=== PATIENT | female | born 1965 | race Hispanic/Latino ===

== ENCOUNTER 2018-07-09 09:54 | Day surgery (SDC) | payer MEDICARE ==
[~2018-07-09 09:54] MED LIST: ANCEF/STERILE WATER 2 GM/20 ML IV NR
[2018-07-09] MEDS ORDERED: ZOFRAN IV PRN (11:28)
[2018-07-09] MEDS ORDERED: TORADOL IV PRN (11:28)
[2018-07-09] MEDS ORDERED: DEMEROL IV PRN (11:28)
--- NOTE | 2018-07-09 11:29 | Anesthesia Day of Surgery ---
Anesthesia Day of Surgery - Day of Surgery Patient Examined: Yes Patient H&P Reviewed: Yes Patient is NPO: Yes
--- NOTE | 2018-07-09 11:30 | Anesthesia Consultation ---
Anesthesia Consult and Med Hx Date of service: 07/09/18 - Airway ROM Head & Neck: Adequate Mental/Hyoid Distance: Adequate Mallampati Class: Class I Intubation Access Assessment: Good - Pulmonary Exam CTA: Yes - Cardiac Exam Cardiac Exam: RRR - Pre-Operative Health Status ASA Pre-Surgery Classification: ASA3 Proposed Anesthetic Plan: General (GA with LMA) - Pulmonary Hx Smoking: Yes (1 PPD X 30 YRS) COPD: Yes (INHALERS PRN) Hx Sleep Apnea: No (AMINAH PRE SCREEN LOW RISK) - Cardiovascular System Hx Hypertension: No - Central Nervous System Hx Back Pain: Yes (NECK AND BACK PAIN) - Hematic Hx Anemia: Yes ( CHILD ONLY) - Other Systems Hx Substance Use: Yes (MARIJUANA OCC FOR NAUSEA) Hx Cancer: No
[2018-07-09 11:56] LABS: Basophils # (Auto) 0.1 K/mm3 (0.0-0.1); Eosinophils # (Auto) 0.3 K/mm3 (0.0-0.4); Hematocrit 42.4 % (30.3-42.9); Hemoglobin 14.8 gm/dl (10.1-14.3); Lymphocytes % (Auto) 31.7 % (13.4-35.0); Mean Corpuscular HGB Conc 35 % (30-34); Mean Corpuscular Hemoglobin 34 pg (28-32); Mean Corpuscular Volume 97 fl (79-97); Monocytes # (Auto) 0.4 K/mm3 (0.0-0.8); Monocytes % (Auto) 6.7 % (0.0-7.3); Platelet Count 162 K/mm3 (140-440); Red Blood Count 4.38 M/mm3 (3.65-5.03); Red Cell Distribution Width 13.2 % (13.2-15.2)
[2018-07-09] MEDS ORDERED: VERSED IV NR (12:00)
[2018-07-09] MEDS ORDERED: LACTATED RINGERS 1,000 ML IV SCH ×2 (12:00)
[2018-07-09 12:09] LABS: BUN/Creatinine Ratio 36; Blood Urea Nitrogen 18 mg/dL (7-17); Calcium 9.5 mg/dL (8.4-10.2); Hemolysis Index 59
[2018-07-09] MEDS ORDERED: XYLOCAINE MPF 2% ONE (12:33)
[2018-07-09] MEDS ORDERED: DILAUDID ONE ×2 (12:33→17:48)
[2018-07-09] MEDS ORDERED: DIPRIVAN 10 MG/ML IV ONE (12:33)
[2018-07-09] MEDS ORDERED: ZOFRAN ONE (13:03)
[2018-07-09] MEDS ORDERED: NACL 0.9% IR ONE (13:21)
[2018-07-09] MEDS ORDERED: TORADOL ONE (14:26)
[2018-07-09] MEDS: DILAUDID IV PRN ×4 (16:55→17:35)
--- NOTE | 2018-07-09 17:03 | Post Anesthesia Evaluation ---
- Post Anesthesia Evaluation Patient Participated: Yes Airway Patent: Yes Stable Respiratory Function: Yes Nausea/Vomiting: No Temp > 96.8F: Yes Pain Manageable: Yes Adequeate Hydration: Yes Anesthesia Complications: No
[2018-07-09] MEDS ORDERED: DILAUDID IV ONE (17:45)
[2018-07-09] MEDS ORDERED: PERCOCET 5/325 PO ONE (17:51)
[2018-07-09] MEDS ORDERED: MARCAINE 0.25% INFILTRATI ONE (18:28)
[2018-07-09] MEDS ORDERED: XYLOCAINE 1% 20 mL ONE (18:28)
[2018-07-09 19:24] VITALS: BP 110/56
--- NOTE | 2018-07-09 20:12 | Procedure Note ---
Date of procedure: 07/09/18 Pre-op diagnosis: displaced fractures right third and fourth proximal phalanx Hand Post-op diagnosis: same Procedure: Open reduction internal fixation right third and fourth proximal phalanges with plates and screws Procedure The patient was brought to the OR placed in the OR table in supine position following induction and intubation by anesthesia the patient's right upper extremity was prepped and draped in the usual sterile manner a timeout procedure was done to identify the patient and the correct operative site. The arm was then exsanguinated followed by inflation of the pneumatic tourniquet to 250 mmHg. A dorsal incision a bayonet-type incision was made over the proximal interphalangeal joint the incision then carried along the mid lateral line ending up towards the metacarpophalangeal joint incision is carried down through skin and subcutaneous the extensor tendon was seen the eighth tendon was then incised longitudinally. The fracture was then identified patient was noted to have loss of reduction and some rotation of the fracture fragments using an osteotome and periosteal elevators D early fracture callus was then lysed and the fracture fragment was placed in a more reduced position using bone -holding forceps followed by temporary fixation with K wires To interfragmentary screws were placed this is followed by application of a mini fragment locked plate the plate was then secured with screws of various lengths following this the fourth digit was approached and a similar manner again using a bayonet-type incision centered over the proximal interphalangeal joint and then carrying it along the mid lateral line the incision was then developed and taken deep or superficial to the extensor tendon again the tendon was incised longitudinally and retracted out of the operative field the again the fracture was identified with early callus formation and rotation of the fracture fragments the fracture fragments were then released using osteotome and periosteal elevators the fracture was then put in a more reduced position and again held with bone-holding forceps followed by K wire fixation and interfragmentary screw stabilization. Again a T-type mini locking plate was applied to the dorsal surface and secured to the bone with screws of various lengths in a locked fashion and AP and lateral film was obtained using a C-arm showing good reduction of the fracture fragments and placement of the hardware in addition the patient's rotation was checked on the operating table and she was found to have limitations with the fingers all pointing towards the base of the thumb following this the wound was copiously irrigated the extensor tendons were repaired using several nylon in an interrupted mattress fashion the skin was closed again with 3-0 nylon tape dressings were applied the patient was placed in a clamdigger-type splint with maximum flexion at the metacarpal phalangeal joints. Following this he was extubated and was taken to postanesthesia recovery in stable condition Anesthesia: TOM Surgeon: PRISCILLA RUTH Dray Driver: TERI RIVER Estimated blood loss: minimal Pathology: none Condition: stable Disposition: PACU (tourniquet time 143 minutes)
--- NOTE | 2018-07-10 09:19 | XRay Report ---
RIGHT HAND 2 VIEWS: 07/09/18 CLINICAL: ORIF third and fourth digits. FINDINGS: 2 fluoroscopic intraoperative images demonstrate malleable plates and screws of the proximal phalanges of the third and fourth digits. An oblique displaced fracture is identified at the lateral aspect of the proximal phalanx of the ring finger. No other fractures are apparent on these images. IMPRESSION: Status post ORIF fractures of the proximal phalanges of the third and fourth digits.
== END 2018-07-09 20:00 | disposition home or self-care (01) ==
LOC: OR 09:54
PROVIDERS: ATTEND Orthopaedic Surgery
DX: S62.612A Displaced fracture of proximal phalanx of right middle finger, initial encounter for closed fracture (principal); S62.614A Displaced fracture of proximal phalanx of right ring finger, initial encounter for closed fracture; J44.9 Chronic obstructive pulmonary disease, unspecified; F32.9 Major depressive disorder, single episode, unspecified; F41.9 Anxiety disorder, unspecified; F17.210 Nicotine dependence, cigarettes, uncomplicated; Z79.899 Other long term (current) drug therapy; Z90.710 Acquired absence of both cervix and uterus; Z86.2 Personal history of diseases of the blood and blood-forming organs and certain disorders involving the immune mechanism; X58.XXXA Exposure to other specified factors, initial encounter; Y93.89 Activity, other specified; Y92.89 Other specified places as the place of occurrence of the external cause; Y99.8 Other external cause status
CPT/HCPCS: 26735; 36415; 73120; 80048; 85025; C1713; J0690; J1170; J1885; J2250; J2405; J2704; J7120

== ENCOUNTER 2020-07-02 18:58 | Emergency (ER) | payer MEDICARE ==
[2020-07-02] MEDS ORDERED: ONDANSETRON 4 MG ODT TAB PO ONE (20:03)
[2020-07-02] MEDS ORDERED: oxyCODONE /ACETAMINOPHEN 5-325MG TAB PO ONE (20:03)
[2020-07-02 20:06] LABS: Basophils # (Auto) 0.1 K/mm3 (0.0-0.1); Basophils % (Auto) 0.8 % (0.0-1.8); Eosinophils # (Auto) 0.4 K/mm3 (0.0-0.4); Eosinophils % (Auto) 5.4 % (0.0-4.3); Hematocrit 42.9 % (30.3-42.9); Hemoglobin 14.5 gm/dl (10.1-14.3); Lymphocytes # (Auto) 2.5 K/mm3 (1.2-5.4); Lymphocytes % (Auto) 37.7 % (13.4-35.0); Mean Corpuscular HGB Conc 34 % (30-34); Mean Corpuscular Volume 98 fl (79-97); Monocytes # (Auto) 0.6 K/mm3 (0.0-0.8); Monocytes % (Auto) 8.7 % (0.0-7.3); Platelet Count 142 K/mm3 (140-440); Red Blood Count 4.36 M/mm3 (3.65-5.03); Red Cell Distribution Width 13.3 % (13.2-15.2)
--- NOTE | 2020-07-02 20:07 | Emergency Department Report ---
ED General Adult HPI - General Chief complaint: Extremity Injury, Upper Stated complaint: INFECTED THUMB Time Seen by Provider: 07/02/20 19:23 Source: patient Mode of arrival: Ambulatory Limitations: No Limitations - History of Present Illness Initial comments: 54-year-old female with history of fibromyalgia presents with complaints of left thumb pain and swelling x2 days. Patient states she believes that she was bitten by a spider or another type of insect, however did not actually see any insect bite her. She reports that suddenly a blister popped up on her thumb that was painful and she popped it with a sewing needle after 24 hours. Patient reports that after she popped the blister with a needle, the pain and swelling worsened and now there is pus draining from the area. She rates her pain as a 10/10 in severity and states she has difficulty bending her thumb due to the swelling and pain. She denies any fever/chills/sweats, loss of sensation into her finger or hand, or history of any immunocompromising diseases -: Sudden - Related Data Home Medications Medication Instructions Recorded Confirmed Last Taken ALBUTEROL Inhaler(NF) [VENTOLIN 1 puff IH PRN PRN 07/03/18 07/03/18 07/08/18 Inhaler(NF)] ALPRAZolam [Xanax] 1 mg PO PRN PRN 07/03/18 07/03/18 07/08/18 Ascorbic Acid [Vitamin C] 1,000 mg PO DAILY 07/03/18 07/03/18 07/08/18 Cyanocobalamin (Vitamin B-12) 2,500 mcg PO DAILY 07/03/18 07/03/18 07/08/18 [Vitamin B12] Cyclobenzaprine [Flexeril] 10 mg PO TID PRN 07/03/18 07/03/18 07/08/18 Multivit-Min/Iron/Folic/Lutein 1 each PO DAILY 07/03/18 07/03/18 07/08/18 [Centrum Silver Women Tablet] Oxycodone HCl/Acetaminophen 1 each PO PRN PRN 07/03/18 07/03/18 07/08/18 [Endocet 7.5-325 mg Tablet] Potassium Citrate [Potassium 10 meq PO DAILY 07/03/18 07/03/18 07/08/18 Citrate ER] Promethazine [Phenergan TAB] 25 mg PO Q6HR PRN 07/03/18 07/03/18 07/08/18 Tiotropium [Spiriva] 18 mcg IH PRN PRN 07/03/18 07/03/18 07/08/18 Previous Rx's Medication Instructions Recorded Last Taken Type HYDROcodone/APAP 7.5-325 [[place] 1 each PO Q6HR PRN #30 tablet 07/09/18 Unknown Rx 7.5-325 mg TAB] oxyCODONE [roxiCODONE] 5 mg PO Q6HR PRN #30 tablet 07/09/18 Unknown Rx Clindamycin [Clindamycin CAP] 300 mg PO Q6H 10 Days #40 cap 07/02/20 Unknown Rx Ibuprofen [Motrin 800 MG tab] 800 mg PO Q8HR PRN #21 tablet 07/02/20 Unknown Rx Mupirocin [Bactroban 2%] 1 applic TP TID 10 Days #1 tube 07/02/20 Unknown Rx Allergies Allergy/AdvReac Type Severity Reaction Status Date / Time No Known Allergies Allergy Verified 07/03/18 14:59 ED Review of Systems ROS: Stated complaint: INFECTED THUMB Other details as noted in HPI Constitutional: denies: chills, diaphoresis, fever, malaise, weakness Respiratory: denies: shortness of breath Cardiovascular: denies: chest pain Endocrine: denies: excessive sweating Gastrointestinal: denies: abdominal pain, nausea, vomiting Musculoskeletal: joint swelling Skin: as per HPI, change in color Neurological: denies: headache, weakness, paresthesias, confusion, abnormal gait Psychiatric: denies: auditory hallucinations, visual hallucinations Hematological/Lymphatic: denies: swollen glands ED Past Medical Hx - Past Medical History Previous Medical History?: Yes Hx Hypertension: No Hx of Cancer: Yes (Cervical) Hx Headaches / Migraines: Yes (MIGRAINES) Hx COPD: Yes (INHALERS PRN) Hx HIV: No - Surgical History Past Surgical History?: Yes Additional Surgical History: Hysterectomy - Social History Smoking Status: Current Every Day Smoker Substance Use Type: None - Medications Home Medications: Home Medications Medication Instructions Recorded Confirmed Last Taken Type ALBUTEROL Inhaler(NF) [VENTOLIN 1 puff IH PRN PRN 07/03/18 07/03/18 07/08/18 Hi story Inhaler(NF)] ALPRAZolam [Xanax] 1 mg PO PRN PRN 07/03/18 07/03/18 07/08/18 History Ascorbic Acid [Vitamin C] 1,000 mg PO DAILY 07/03/18 07/03/18 07/08/18 History Cyanocobalamin (Vitamin B-12) 2,500 mcg PO DAILY 07/03/18 07/03/18 07/08/18 History [Vitamin B12] Cyclobenzaprine [Flexeril] 10 mg PO TID PRN 07/03/18 07/03/18 07/08/18 History Multivit-Min/Iron/Folic/Lutein 1 each PO DAILY 07/03/18 07/03/18 07/08/18 History [Centrum Silver Women Tablet] Oxycodone HCl/Acetaminophen 1 each PO PRN PRN 07/03/18 07/03/18 07/08/18 History [Endocet 7.5-325 mg Tablet] Potassium Citrate [Potassium 10 meq PO DAILY 07/03/18 07/03/18 07/08/18 History Citrate ER] Promethazine [Phenergan TAB] 25 mg PO Q6HR PRN 07/03/18 07/03/18 07/08/18 History Tiotropium [Spiriva] 18 mcg IH PRN PRN 07/03/18 07/03/18 07/08/18 History HYDROcodone/APAP 7.5-325 [[place] 1 each PO Q6HR PRN #30 tablet 07/09/18 Unknown Rx 7.5-325 mg TAB] oxyCODONE [roxiCODONE] 5 mg PO Q6HR PRN #30 tablet 07/09/18 Unknown Rx Clindamycin [Clindamycin CAP] 300 mg PO Q6H 10 Days #40 cap 07/02/20 Unknown Rx Ibuprofen [Motrin 800 MG tab] 800 mg PO Q8HR PRN #21 tablet 07/02/20 Unknown Rx Mupirocin [Bactroban 2%] 1 applic TP TID 10 Days #1 tube 07/02/20 Unknown Rx ED Physical Exam - General Limitations: No Limitations General appearance: alert, in no apparent distress - Head Head exam: Present: atraumatic, normocephalic - Eye Eye exam: Present: normal appearance. Absent: scleral icterus - Neck Neck exam: Present: normal inspection, full ROM - Respiratory Respiratory exam: Present: normal lung sounds bilaterally. Absent: respiratory distress - Cardiovascular Cardiovascular Exam: Present: regular rate, normal rhythm - Extremities Exam Extremities exam: Present: other (Moderate swelling noted to left thumb with maceration of skin noted to the dorsal aspect of the thumb; there is a small opening with purulent drainage noted; swelling is mostly noted to the lateral portion of the thumb; no felon is noted; there is mild active bleeding; flexion of thumb is decreased secondary to swelling and pain; normal sensation and perfusion of the thumb is noted; no pain at the MCP joint with passive range of motion) - Expanded Upper Extremity Exam Left Neuro motor exam: Present: wrist extension intact, thumb opposition intact, thumb adduction intact - Back Exam Back exam: Present: full ROM - Neurological Exam Neurological exam: Present: alert, oriented X3, normal gait. Absent: motor sensory deficit - Psychiatric Psychiatric exam: Present: normal affect, normal mood - Skin Skin exam: Present: warm, dry. Absent: diaphoretic, petechiae, pallor, ecchymosis ED Course Vital Signs 07/02/20 19:02 Temperature 97.5 F L Pulse Rate 76 Respiratory 18 Rate Blood Pressure 137/108 O2 Sat by Pulse 97 Oximetry - I & D Finger Type of Procedure: Simple Site: Left thumb Blade Size: 11 I & D Procedure: betadine prep, sterile drapes applied, sterile dressing applied Progress: Patient in exercise using 8 cc of lidocaine 1% without epi. Mild to moderate purulent drainage obtained from the finger. Sample was sent for wound culture. Minimal bleeding occurred during procedure. Patient tolerated procedure well w ithout any immediate complications. She has normal perfusion post procedure. Increased flexion of thumb noted post procedure when compared to range of motion prior to procedure. ED Medical Decision Making - Lab Data Result diagrams: 07/02/20 19:51 07/02/20 19:51 Lab Results 07/02/20 07/02/20 Range/Units 19:51 19:51 WBC 6.8 (4.5-11.0) K/mm3 RBC 4.36 (3.65-5.03) M/mm3 Hgb 14.5 H (10.1-14.3) gm/dl Hct 42.9 (30.3-42.9) % MCV 98 H (79-97) fl MCH 33 H (28-32) pg MCHC 34 (30-34) % RDW 13.3 (13.2-15.2) % Plt Count 142 (140-440) K/mm3 Lymph % (Auto) 37.7 H (13.4-35.0) % Divide % (Auto) 8.7 H (0.0-7.3) % Eos % (Auto) 5.4 H (0.0-4.3) % Baso % (Auto) 0.8 (0.0-1.8) % Lymph # (Auto) 2.5 (1.2-5.4) K/mm3 Divide # (Auto) 0.6 (0.0-0.8) K/mm3 Eos # (Auto) 0.4 (0.0-0.4) K/mm3 Baso # (Auto) 0.1 (0.0-0.1) K/mm3 Seg Neutrophils % 47.4 (40.0-70.0) % Seg Neutrophils # 3.2 (1.8-7.7) K/mm3 Sodium 142 (137-145) mmol/L Potassium 3.8 (3.6-5.0) mmol/L Chloride 103.0 (98-107) mmol/L Carbon Dioxide 28 (22-30) mmol/L Anion Gap 15 mmol/L BUN 18 H (7-17) mg/dL Creatinine 0.5 L (0.6-1.2) mg/dL Estimated GFR > 60 ml/min BUN/Creatinine Ratio 36 % Glucose 95 (65-100) mg/dL Calcium 9.2 (8.4-10.2) mg/dL Total Bilirubin 0.20 (0.1-1.2) mg/dL AST 32 (5-40) units/L ALT 29 (7-56) units/L Alkaline Phosphatase 60 (35-129) units/L Total Protein 6.4 (6.3-8.2) g/dL Albumin 4.3 (3.9-5) g/dL Albumin/Globulin Ratio 2.0 % - Radiology Data Radiology results: report reviewed LEFT FINGER(S) 3 VIEW(S) INDICATION / CLINICAL INFORMATION: infection COMPARISON: None available. FINDINGS: BONES / JOINT(S): No acute fracture or subluxation. No significant arthritis. SOFT TISSUES: Minimal soft tissue swelling and skin irregularity noted of the thumb at the level of the interphalangeal joint. - Medical Decision Making 54-year-old female with history of fibromyalgia presents with complaints of left thumb pain and swelling x2 days. Patient states she believes that she was bitten by a spider or another type of insect, however did not actually see any insect bite her. She reports that suddenly a blister popped up on her thumb that was painful and she popped it with a sewing needle after 24 hours. Patient reports that after she popped the blister with a needle, the pain and swelling worsened and now there is pus draining from the area. She rates her pain as a 10/10 in severity and states she has difficulty bending her thumb due to the swelling and pain. She denies any fever/chills/sweats, loss of sensation into her finger or hand, or history of any immunocompromising diseases. Paronychia with skin maceration and active drainage noted on exam. Incision and drainage performed in sample was sent for wound culture. Patient tolerated procedure well. CBC is normal. No osteomyelitis or other acute bony abnormalities noted on x-ray. Bacitracin and sterile dressing placed over wound. Discussed importance of warm water soaks, wound care, and strict return precautions in detail with patient who verbalizes understanding. Patient to return to ED in 2 days for wound recheck. Prescription for clindamycin and mupirocin given. She is afebrile and non-tachycardic and stable for discharge home. Critical care attestation.: If time is entered above; I have spent that time in minutes in the direct care of this critically ill patient, excluding procedure time. ED Disposition Clinical Impression: Paronychia of thumb, left Disposition: DC-01 TO HOME OR SELFCARE Is pt being admited?: No Condition: Stable Instructions: Paronychia (ED), Abscess Incision and Drainage (ED) Additional Instructions: Return to the emergency department in 2 days for wound recheck on 07/04/2020 Prescriptions: Mupirocin [Bactroban 2%] 1 applic TP TID 10 Days #1 tube Clindamycin [Clindamycin CAP] 300 mg PO Q6H 10 Days #40 cap Ibuprofen [Motrin 800 MG tab] 800 mg PO Q8HR PRN #21 tablet PRN Reason: pain
[2020-07-02 20:26] LABS: Alanine Aminotransferase 29 units/L (7-56); Albumin 4.3 g/dL (3.9-5); Blood Urea Nitrogen 18 mg/dL (7-17); Calcium 9.2 mg/dL (8.4-10.2); Hemolysis Index 2
[2020-07-02] MEDS ORDERED: LIDOCAINE (1%) 10 MG/1 ML VIAL 20 ML MDV INFILTRATI ONE (20:29)
[2020-07-02 20:31] LABS: BUN/Creatinine Ratio 36
--- NOTE | 2020-07-02 21:25 | XRay Report ---
LEFT FINGER(S) 3 VIEW(S) INDICATION / CLINICAL INFORMATION: infection COMPARISON: None available. FINDINGS: BONES / JOINT(S): No acute fracture or subluxation. No significant arthritis. SOFT TISSUES: Minimal soft tissue swelling and skin irregularity noted of the thumb at the level of t he interphalangeal joint. ADDITIONAL FINDINGS: None. Signer Name: Den Crouch MD Signed: 07/02/2020 9:20 PM Workstation Name: [id number]
[2020-07-02] MEDS ORDERED: CLINDAMYCIN 150 MG CAP PO ONE (22:09)
[2020-07-02 23:02] VITALS: BP 147/96
== END 2020-07-02 23:04 | disposition home or self-care (01) ==
LOC: ED 18:58
DX: L03.012 Cellulitis of left finger (principal); G43.909 Migraine, unspecified, not intractable, without status migrainosus; J44.9 Chronic obstructive pulmonary disease, unspecified; F17.200 Nicotine dependence, unspecified, uncomplicated; Z90.710 Acquired absence of both cervix and uterus; Z79.1 Long term (current) use of non-steroidal anti-inflammatories (NSAID); Z79.899 Other long term (current) drug therapy; Z85.41 Personal history of malignant neoplasm of cervix uteri
CPT/HCPCS: 36415; 80053; 85025; 87076; 87116; 87186; Q0162

== ENCOUNTER 2020-08-10 13:31 | Outpatient (CLI) | payer MEDICARE ==
--- NOTE | 2020-08-10 15:20 | XRay Report ---
RIGHT HAND 2 VIEWS 1417 INDICATION: M79.641 S62.612A PAIN RT HAND DISPLACED FRACTURE FINGER, history of recent injury COMPARISON: Intraoperative views 07/09/2018 FINDINGS: Previous surgical changes are seen in the proximal phalanges of the middle and ring fingers . I see no acute fractures or dislocations. No other bony lesions are seen. No foreign bodies are see n in the soft tissues. Slight osteoarthritic type changes are seen in the distal interphalangeal join t of the little finger. Signer Name: James Bradley MD Signed: 08/10/2020 3:15 PM Workstation Name: [id number]
--- NOTE | 2020-08-10 15:51 | XRay Report ---
HISTORY:M25.561 PAIN RT KNEE STANDING VIEWS COMPARISON: None. TECHNIQUE: AP and lateral views were obtained FINDINGS: Bones: No fracture or dislocation. Joint spaces: Maintained. Soft tissues: No significant abnormality. Additional findings: None. IMPRESSION: 1. No significant abnormality. Signer Name: Doc Ren MD Signed: 08/10/2020 3:46 PM Workstation Name: [id number]
== END 2020-08-10 13:32 | disposition home or self-care (01) ==
LOC: XRAY 13:31
PROVIDERS: ATTEND Orthopaedic Surgery
DX: S62.614A Displaced fracture of proximal phalanx of right ring finger, initial encounter for closed fracture (principal); S62.612A Displaced fracture of proximal phalanx of right middle finger, initial encounter for closed fracture; M25.561 Pain in right knee; X58.XXXA Exposure to other specified factors, initial encounter; Y93.89 Activity, other specified; Y92.89 Other specified places as the place of occurrence of the external cause; Y99.8 Other external cause status

== ENCOUNTER 2020-08-24 09:52 | Day surgery (SDC) | payer MEDICARE ==
[2020-08-24] MEDS ORDERED: ONDANSETRON 4 MG/2 ML INJ IV PRN (11:05)
[2020-08-24] MEDS ORDERED: HYDROmorphone 1 MG/1 ML INJ IV PRN ×2 (11:05)
[2020-08-24] MEDS ORDERED: fentaNYL 100 MCG/2 ML INJ IV ONE (11:05)
--- NOTE | 2020-08-24 11:06 | Anesthesia Day of Surgery ---
Anesthesia Day of Surgery - Day of Surgery Patient Examined: Yes Patient H&P Reviewed: Yes Patient is NPO: Yes
--- NOTE | 2020-08-24 11:08 | Anesthesia Consultation ---
Anesthesia Consult and Med Hx Date of service: 08/24/20 - Airway Anesthetic Teeth Evaluation: Edentulous ROM Head & Neck: Adequate Mental/Hyoid Distance: Adequate Mallampati Class: Class II Intubation Access Assessment: Good - Pre-Operative Health Status ASA Pre-Surgery Classification: ASA3 Proposed Anesthetic Plan: General Nerve Block: SC - Pulmonary Hx Smoking: Yes (10 CIG. PER DAY) Hx Asthma: No (+2FS) COPD: Yes (INHALERS PRN- USED LAST WEEK) Hx Pneumonia: No Hx Sleep Apnea: No (AMINAH PRE SCREEN LOW RISK) - Cardiovascular System Hx Hypertension: No Hx Heart Attack/AMI: No Hx Pacemaker: No Hx Internal Defibrillator: No - Central Nervous System Hx Seizures: No Hx Back Pain: Yes (NECK AND BACK PAIN) Hx Psychiatric Problems: Yes (Anxiety/Depression/Bipolar/Fibromyalgia) - Endocrine Hx End Stage Renal Disease: No Hx Cirrhosis: No Hx Liver Disease: No - Hematic Hx Anemia: Yes ( CHILD ONLY) Hx Sickle Cell Disease: No - Other Systems Hx Alcohol Use: No Hx Substance Use: Yes (MARIJUANA OCC FOR NAUSEA) Hx Cancer: Yes
[2020-08-24] MEDS ORDERED: BUPIVACAINE/PF (0.25%) 2.5 MG/ML 30 ML VIAL INFILTRATI ONE (11:10)
[2020-08-24] MEDS ORDERED: ceFAZolin/STERILE WATER 2 GM/20 ML SYRINGE IV NR (11:21)
[2020-08-24] MEDS ORDERED: LACTATED RINGERS 1,000 ML IV SCH (12:00)
[2020-08-24] MEDS ORDERED: MIDAZOLAM 2 MG/2 ML INJ IV NR (12:00)
[2020-08-24] MEDS ORDERED: MIDAZOLAM 5 MG/5 ML INJ MDV IV ONE (12:01)
[2020-08-24] MEDS ORDERED: PHENYLEPHRINE/NS 1,000 MCG/10 ML SYRINGE (OR USE) IV ONE (13:00)
[2020-08-24] MEDS ORDERED: LIDOCAINE MPF (2%) 20 MG/1 ML VIAL 5 ML ONE (13:00)
[2020-08-24] MEDS ORDERED: dexAMETHasone 20 MG/5 ML VIAL ONE (13:00)
[2020-08-24] MEDS ORDERED: ONDANSETRON 4 MG/2 ML INJ ONE (13:00)
[2020-08-24] MEDS ORDERED: GLYCOPYRROLATE 0.4 MG/2 ML INJ ONE (13:00)
[2020-08-24] MEDS ORDERED: KETAMINE/STERILE WATER 50 MG/ML SYRINGE ONE (13:01)
[2020-08-24] MEDS ORDERED: propofoL 200 MG/20 ML VIAL IV ONE (13:01)
[2020-08-24] MEDS ORDERED: fentaNYL 100 MCG/2 ML INJ ONE (13:01)
[2020-08-24] MEDS ORDERED: SODIUM CHLORIDE 0.9% IRR 1,500 ML BOTTLE IR ONE (14:04)
--- NOTE | 2020-08-24 15:56 | Procedure Note ---
Date of procedure: 08/24/20 Pre-op diagnosis: Hardware irritation right third and fourth finger Post-op diagnosis: same Procedure: Removal of hardware right third and fourth fingers Procedure The patient was brought to the OR after being given an axillary nerve block for postop pain management she was placed on the table supine following induction with MAC anesthesia the patient's right upper extremity was prepped and draped in the usual sterile manner. A timeout procedure was done to identify the patient and the correct operative site. The arm was exsanguinated followed by inflation of the pneumatic tourniquet to 250 mmHg. Utilizing previous bayonet type incisions and using a #15 blade incision was taken down sharply through skin subcu the extensor tendon was seen and identified using a longitudinal incision over the extensor tendon this is taken down sharply to the plate using very tractors the soft tissues were stripped from the screw heads next the screws were removed without complications this was repeated for both the third and fourth fingers following this the wounds were then copiously irrigated the extensor tendons were repaired using 6-0 nylon in an interrupted suture pattern following this the skin was closed with 4-0 nylon in a interrupted pattern r outine postop dressings were applied the patient tolerated procedure there were no complications she was sent to postop anesthesia in a stable condition Anesthesia: MAC, regional Surgeon: PRISCILLA RUTH Bond Writer: TERI RIVER Estimated blood loss: minimal Pathology: none Condition: stable Disposition: PACU
--- NOTE | 2020-08-24 15:57 | Post Anesthesia Evaluation ---
- Post Anesthesia Evaluation Patient Participated: Yes Airway Patent: Yes Stable Respiratory Function: Yes Nausea/Vomiting: No Temp > 96.8F: Yes Pain Manageable: Yes Adequeate Hydration: Yes Anesthesia Complications: No Block Receding Appropriately: Yes Patient on Ventilator: No
--- NOTE | 2020-08-24 16:42 | XRay Report ---
Single fluoroscopic image submitted Indication: Intraoperative localization Impression: A single image of the right hand was submitted for documentation purposes with radiology involvement. Interval removal of malleable fixation plates over the right long and ring finger prox imal phalanges. There is a single retained metallic screw near the neck of the long finger. Please r efer to the operative note for complete details. Fluoroscopic time: 5 seconds Number of fluoroscopic images: 1 Signer Name: Alexandr Byrne MD Signed: 08/24/2020 4:38 PM Workstation Name: [id number]
[2020-08-24 17:04] VITALS: BP 124/69
== END 2020-08-24 17:20 | disposition home or self-care (01) ==
LOC: OR 09:52
PROVIDERS: ATTEND Orthopaedic Surgery
DX: T84.89XA Other specified complication of internal orthopedic prosthetic devices, implants and grafts, initial encounter (principal); Z20.828 Contact with and (suspected) exposure to other viral communicable diseases; G43.909 Migraine, unspecified, not intractable, without status migrainosus; J44.9 Chronic obstructive pulmonary disease, unspecified; M79.10 Myalgia, unspecified site; M19.90 Unspecified osteoarthritis, unspecified site; F17.210 Nicotine dependence, cigarettes, uncomplicated; F31.9 Bipolar disorder, unspecified; F41.9 Anxiety disorder, unspecified; Z79.899 Other long term (current) drug therapy; Z85.41 Personal history of malignant neoplasm of cervix uteri; Z98.51 Tubal ligation status; Z98.890 Other specified postprocedural states; Z90.710 Acquired absence of both cervix and uterus; Z86.2 Personal history of diseases of the blood and blood-forming organs and certain disorders involving the immune mechanism; Y84.8 Other medical procedures as the cause of abnormal reaction of the patient, or of later complication, without mention of misadventure at the time of the procedure; Y92.89 Other specified places as the place of occurrence of the external cause
CPT/HCPCS: 20680; 64417; 73120; 88302; J0690; J1100; J2250; J2370; J2405; J2704; J3010; J3490; J7120; U0003; 64450; 88300

== ENCOUNTER 2022-01-07 18:42 | Emergency (ER) | payer MEDICARE ==
--- NOTE | 2022-01-07 19:00 | Emergency Department Report ---
HPI - General Chief Complaint: Overdose Time Seen by Provider: 01/07/22 18:49 - HPI HPI: Room 20 The patient is a 56-year-old female present with a chief complaint of opiate overdose. The patient was found by another resident in the home unresponsive. EMS was called and found the patient lying in bed unresponsive and cyanotic and hypoxic with a SPO2 of 62% on room air. Patient was administered Narcan 2 mg intranasally with improvement in mental status. Patient now awake and alert stating she feels "embarrassed." Patient denies suicidal ideation. Patient states she took 1 Roxicet 30 mg but cut it in half. Patient denies any other ingestions ED Past Medical Hx - Past Medical History Hx Arthritis: Yes Hx Headaches / Migraines: Yes (MIGRAINES) Hx Psychiatric Treatment: Yes (Anxiety) Hx COPD: Yes (INHALERS PRN- USED LAST WEEK) Additional medical history: CAD - Surgical History Additional Surgical History: Hysterectomy - Family History Family history: no significant - Social History Smoking Status: Current Every Day Smoker Substance Use Type: Other (Opiates) - Medications Home Medications: Home Medications Medication Instructions Recorded Confirmed Last Taken Type ALBUTEROL Inhaler(NF) [VENTOLIN 1 puff IH PRN PRN 07/03/18 08/24/20 08/24/20 09:00 History Inhaler(NF)] ALPRAZolam [Xanax] 1 mg PO PRN PRN 07/03/18 08/21/20 08/23/20 History Ascorbic Acid [Vitamin C] 1,000 mg PO DAILY 07/03/18 08/21/20 08/23/20 History Cyanocobalamin (Vitamin B-12) 2,500 mcg PO DAILY 07/03/18 08/21/20 08/23/20 History [Vitamin B12] Multivit-Min/Iron/Folic/Lutein 1 each PO DAILY 07/03/18 08/21/20 08/23/20 History [Centrum Silver Women Tablet] Potassium Citrate [Potassium 10 meq PO DAILY 07/03/18 08/21/20 08/23/20 History Citrate ER] Promethazine [Phenergan TAB] 25 mg PO Q6HR PRN 07/03/18 08/21/20 08/23/20 History Adult Probiotic 1 cap PO DAILY 08/18/20 08/18/20 08/23/20 History Burkett 3,6,9 Combination No.7 1 cap PO DAILY 08/18/20 08/18/20 08/23/20 History oxyCODONE /ACETAMINOPHEN [Percocet 1 tab PO Q6HR PRN #30 tablet 08/24/20 Unknown Rx 5/325] Naloxone HCl [Narcan Nasal Fishers] 4 mg NS ONCE PRN #1 spray 01/07/22 Unknown Rx ED Review of Systems ROS: Stated complaint: OPIOD OD Other details as noted in HPI Constitutional: no symptoms reported Eyes: denies: eye pain ENT: denies: throat pain Respiratory: no symptoms reported Cardiovascular: denies: chest pain Endocrine: no symptoms reported Gastrointestinal: denies: abdominal pain Genitourinary: denies: dysuria Musculoskeletal: denies: back pain Psychiatric: denies: suicidal thoughts Physical Exam - Physical Exam Vital Signs: Vital Signs 01/07/22 18:43 Temperature 98.2 F Pulse Rate 70 Blood Pressure 138/78 [Left] O2 Sat by Pulse 97 Oximetry Physical Exam: GENERAL: The patient is well-developed thin female lying on stretcher not appearing to be in acute distress. [] HEENT: Normocephalic. Atraumatic. Extraocular motions are intact. Patient has moist mucous membranes. NECK: Supple. Trachea midline CHEST/LUNGS: Clear to auscultation. There is no respiratory distress noted. HEART/CARDIOVASCULAR: Regular. There is no tachycardia. There is no gallop rub or murmur. ABDOMEN: Abdomen is soft, nontender. Patient has normal bowel sounds. There is no abdominal distention. SKIN: There is no rash. There is no edema. There is no diaphoresis. NEURO: The patient is awake, alert, and oriented. The patient is cooperative. The patient has no focal neurologic deficits. The patient has normal speech. GCS 15 MUSCULOSKELETAL: There is no evidence of acute injury. ED Course Vital Signs 01/07/22 18:43 Temperature 98.2 F Pulse Rate 70 Blood Pressure 138/78 [Left] O2 Sat by Pulse 97 Oximetry ED Medical Decision Making - Lab Data Result diagrams: 01/07/22 19:00 01/07/22 19:00 Laboratory Tests 01/07/22 01/07/22 01/07/22 19:00 19:00 19:00 WBC 9.8 RBC 4.72 Hgb 15.5 H Hct 46.5 H MCV 98 H MCH 33 H MCHC 33 RDW 13.1 L Plt Count 144 Lymph % (Auto) 12.1 L Bullitt % (Auto) 5.6 Eos % (Auto) 0.7 Baso % (Auto) 0.3 Lymph # (Auto) 1.2 Bullitt # (Auto) 0.6 Eos # (Auto) 0.1 Baso # (Auto) 0.0 Seg Neutrophils % 81.3 H Seg Neutrophils # 8.0 H PT 12.9 INR 0.88 APTT 26.3 Sodium 140 Potassium 3.5 L Chloride 99.4 Carbon Dioxide 26 Anion Gap 18 BUN 26 H Creatinine 0.5 L Estimated GFR > 60 BUN/Creatinine Ratio 52 Glucose 155 H Calcium 8.9 Total Bilirubin 0.60 AST 60 H ALT 43 Alkaline Phosphatase 60 Total Creatine Kinase 1575 H CK-MB (CK-2) 33.8 H CK-MB (CK-2) Rel Index 2.1 Troponin T 0.012 Total Protein 7.4 Albumin 4.6 Albumin/Globulin Ratio 1.6 Salicylates Acetaminophen Plasma/Serum Alcohol 01/07/22 01/07/22 01/07/22 19:00 19:00 19:00 WBC RBC Hgb Hct MCV MCH MCHC RDW Plt Count Lymph % (Auto) Bullitt % (Auto) Eos % (Auto) Baso % (Auto) Lymph # (Auto) Bullitt # (Auto) Eos # (Auto) Baso # (Auto) Seg Neutrophils % Seg Neutrophils # PT INR APTT Sodium Potassium Chloride Carbon Dioxide Anion Gap BUN Creatinine Estimated GFR BUN/Creatinine Ratio Glucose Calcium Total Bilirubin AST ALT Alkaline Phosphatase Total Creatine Kinase CK-MB (CK-2) CK-MB (CK-2) Rel Index Troponin T Total Protein Albumin Albumin/Globulin Ratio Salicylates < 0.3 L Acetaminophen 5.0 L Plasma/Serum Alcohol < 0.01 - EKG Data -: EKG Interpreted by Me EKG shows normal: sinus rhythm Rate: normal - EKG Data When compared to previous EKG there are: previous EKG unavailable Interpretation: nonspecific ST-T wave federico - Differential Diagnosis Opiate overdose Critical care attestation.: If time is entered above; I have spent that time in minutes in the direct care of this critically ill patient, excluding procedure time. ED Disposition Clinical Impression: Opiate overdose Disposition: 01 HOME / SELF CARE / HOMELESS Is pt being admited?: No Does the pt Need Aspirin: No Condition: Stable Instructions: Opioid Overdose Additional Instructions: Return to the emergency department should you develop worsening symptoms, inability to tolerate food or liquids, high fever or any other concerns Prescriptions: Naloxone HCl [Narcan Nasal Fishers] 4 mg NS ONCE PRN #1 spray PRN Reason: Opioid Reversal Referrals: PRIMARY CARE, [Primary Care Provider] - 3-5 Days Time of Disposition: 22:22
[2022-01-07 19:53] LABS: Basophils % (Auto) 0.3 % (0.0-1.8); Eosinophils # (Auto) 0.1 K/mm3 (0.0-0.4); Eosinophils % (Auto) 0.7 % (0.0-4.3); Hematocrit 46.5 % (30.3-42.9); Hemoglobin 15.5 gm/dl (10.1-14.3); Lymphocytes # (Auto) 1.2 K/mm3 (1.2-5.4); Lymphocytes % (Auto) 12.1 % (13.4-35.0); Mean Corpuscular HGB Conc 33 % (30-34); Mean Corpuscular Volume 98 fl (79-97); Monocytes # (Auto) 0.6 K/mm3 (0.0-0.8); Monocytes % (Auto) 5.6 % (0.0-7.3); Platelet Count 144 K/mm3 (140-440); Red Blood Count 4.72 M/mm3 (3.65-5.03); Red Cell Distribution Width 13.1 % (13.2-15.2)
[2022-01-07 20:01] LABS: INR 0.88 (0.87-1.13)
[2022-01-07 20:02] LABS: Partial Thromboplastin Time 26.3 Sec. (24.2-36.6)
[2022-01-07 20:11] LABS: Creatine Kinase MB 33.8 ng/mL (0.0-4.0)
[2022-01-07 20:13] LABS: Alanine Aminotransferase 43 units/L (7-56); Albumin 4.6 g/dL (3.9-5); Blood Urea Nitrogen 26 mg/dL (7-17); Calcium 8.9 mg/dL (8.4-10.2); Hemolysis Index 4
[2022-01-07 20:22] LABS: BUN/Creatinine Ratio 52
[2022-01-07] MEDS ORDERED: SODIUM CHLORIDE 0.9% 1000 ML 1,000 ML IV ONE ×2 (20:23)
[2022-01-07 23:01] VITALS: BP 124/65
--- NOTE | 2022-01-08 11:54 | Electrocardiograph Report ---
[facility] Test Date: 2022-01-07 Test Time: 22:14:29 Pat Name: ANA MARÍA WAN Department: Room: Gender: F Inspector Fabric: LUPE : 1965 Requested By: MAGALY IRVING Order Number: [id number] Reading MD: Leighton Aguila Measurements Intervals Spray Rate: 70 P: 75 SC: 143 QRS: 89 QRSD: 99 T: 69 QT: 435 QTc: 468 Interpretive Statements Sinus rhythm Atrial premature complex Probable left atrial enlargement No previous ECG available for comparison Electronically Signed On 01-08-2022 11:54:07 EDT by Leighton Aguila
== END 2022-01-07 23:01 | disposition home or self-care (01) ==
LOC: ED 18:42
DX: T40.601A Poisoning by unspecified narcotics, accidental (unintentional), initial encounter (principal); M19.90 Unspecified osteoarthritis, unspecified site; F41.9 Anxiety disorder, unspecified; J44.9 Chronic obstructive pulmonary disease, unspecified; Z98.890 Other specified postprocedural states; F17.200 Nicotine dependence, unspecified, uncomplicated; Y92.89 Other specified places as the place of occurrence of the external cause
CPT/HCPCS: 36415; 80053; 82550; 82553; 84484; 85025; 85610; 85730; 93005; 96360; 99284; J7030; 80320; Q0162; G0480